=== PATIENT | male | born 1970 | race Caucasian/White ===

== ENCOUNTER 2020-01-09 15:56 | Emergency (ER) | payer OTHER ==
[2020-01-09 16:03] VITALS: BP 139/88; PULSE 92; RESP 18; TEMP 98.1
--- NOTE | 2020-01-09 16:29 | ED ---
General Adult HPI - General Chief complaint: Skin/Abscess/Foreign Body Stated complaint: i[facility] rash Time Seen by Provider: 01/09/20 16:07 Source: patient, RN notes reviewed, old records reviewed Mode of arrival: ambulatory Limitations: no limitations - History of Present Illness Initial comments: 49-year-old male with rash, skin irritation to his nose. Patient had developed some sores on the tip of his nose 3 days prior he was started on Bactrim. He's had a total of 4 doses of Bactrim. He had been wearing a mask today and felt that this irritation had worsened. He also noted some swelling to the left side of his face. No difficulty breathing. No fever. No history diabetes. - Related Data Previous Rx's Medication Instructions Recorded Cephalexin [Keflex] 500 mg PO Q6HR 10 Days #40 cap 01/09/20 Mupirocin 2% Oint [Bactroban 2% 1 applic TOPICAL TID #30 gm 01/09/20 Oint] Allergies Allergy/AdvReac Type Severity Reaction Status Date / Time No Known Allergies Allergy Verified 01/09/20 16:00 Review of Systems ROS Statement: Those systems with pertinent positive or pertinent negative responses have been documented in the HPI. ROS Other: All systems not noted in ROS Statement are negative. Past Medical History Past Medical History: GERD/Reflux History of Any Multi-Drug Resistant Organisms: None Reported Past Surgical History: Bowel Resection, Cholecystectomy Past Psychological History: No Psychological Hx Reported Smoking Status: Never smoker Past Alcohol Use History: Occasional Past Drug Use History: Marijuana General Exam Limitations: no limitations General appearance: alert, in no apparent distress Head exam: Present: atraumatic, normocephalic Eye exam: Present: normal appearance, PERRL. Absent: scleral icterus, conjunctival injection, periorbital swelling, periorbital tenderness ENT exam: Present: other (Yellow crusting rash to the tip of the patient's nose) Neck exam: Present: normal inspection. Absent: tenderness, meningismus Respiratory exam: Present: normal lung sounds bilaterally. Absent: respiratory distress Cardiovascular Exam: Present: regular rate, normal rhythm GI/Abdominal exam: Present: soft. Absent: distended, tenderness, guarding Course Vital Signs 01/09/20 16:00 Temperature 98.1 F Pulse Rate 92 Respiratory 18 Rate Blood Pressure 139/88 O2 Sat by Pulse 96 Oximetry Medical Decision Making - Medical Decision Making 49-year-old male with impetigo to the end of his nose, likely secondary to wearing a mask. He has had 4 doses of Bactrim. He feels that this is improving however his wanted him evaluated today. He did have to wear a mask at work today and felt that this may have irritated his rash. He is otherwise well- appearing, afebrile with stable vitals. I did recommend continuing the Bactrim, added Keflex and mupirocin. Patient's given strict return parameters. Disposition Clinical Impression: Impetigo Disposition: HOME SELF-CARE Condition: Good Instructions (If sedation given, give patient instructions): Impetigo (ED) Prescriptions: Mupirocin 2% Oint [Bactroban 2% Oint] 1 applic TOPICAL TID #30 gm Cephalexin [Keflex] 500 mg PO Q6HR 10 Days #40 cap Is patient prescribed a controlled substance at d/c from ED?: No Referrals: Connor Yanez DO [Primary Care Provider] - 1-2 days Time of Disposition: 16:26
== END 2020-01-09 16:40 | disposition home or self-care (01) ==
LOC: EC 15:56
DX: L01.00 Impetigo, unspecified (principal)
CPT/HCPCS: 99283